=== PATIENT | female | born 1950 | race American Indian/Alaskan Native ===

== ENCOUNTER 2022-07-05 05:15 | Emergency (ER) | payer MEDICARE, OTHER ==
[~2022-07-05] VITALS: Ht 167.6 cm; Wt 107.0 kg
[~2022-07-05 05:15] MED LIST: IRON325 M1 PO; LEVOTHYROXINE50 MCG PO; LOSARTAN POTASS50 MG PO; VITAMIN B122500 MCG PO; VITAMIN C500 M4 PO; VITAMIN D35000 UNI1 PO
[2022-07-05] MEDS ORDERED: MACROBID 100 M100 MG PO (06:42)
[2022-07-05] MEDS ORDERED: TRAMADOL HCL50 MG PO (06:42)
[2022-07-05 06:56] VITALS: BP 153/83
== END 2022-07-05 06:57 | disposition home or self-care (01) ==
LOC: ED 05:15
DX: N39.0 Urinary tract infection, site not specified (principal); N83.292 Other ovarian cyst, left side; I10 Essential (primary) hypertension; Z87.891 Personal history of nicotine dependence; Z96.652 Presence of left artificial knee joint; Z88.0 Allergy status to penicillin; Z79.890 Hormone replacement therapy; Z79.899 Other long term (current) drug therapy
CPT/HCPCS: 36415; 74177; 80053; 81001; 83690; 85025; 96375; 99284-25; A9270; J2270; J2405; J7030; Q9967